=== PATIENT | female | born 1990 | race Caucasian/White ===

== ENCOUNTER 2020-10-25 15:27 | Emergency (ER) | payer OTHER ==
[~2020-10-25] VITALS: Ht 152.4 cm; Wt 68.0 kg
--- NOTE | 2020-10-25 15:46 | NUR ---
DR GAITAN AT BEDSIDE
[2020-10-25] MEDS ORDERED: MORPHINE SULFATE INJ 4 MG/ML DISP.SYRIN ONE (16:05)
[2020-10-25] MEDS ORDERED: ONDANSETRON 4 MG TAB.RAPDIS ONE (16:05)
[2020-10-25] MEDS: MORPHINE SULFATE INJ 2 MG/ML DISP.SYRIN IM ONE (16:09)
[2020-10-25] MEDS: ONDANSETRON 4 MG TAB.RAPDIS SL ONE (16:10)
--- NOTE | 2020-10-25 16:10 | NUR ---
PT MEDICATED ORDERED
--- NOTE | 2020-10-25 16:11 | NUR ---
XRAY AT BEDSIDE
--- NOTE | 2020-10-25 16:22 | NUR ---
DR GAITAN AT BEDSIDE
--- NOTE | 2020-10-25 16:31 | NUR ---
THANIA MCFADDEN AT BEDSIDE FOR PLACING KNEE IMMOBILIZER
[2020-10-25 17:34] VITALS: BP 97/59
--- NOTE | 2020-10-25 17:34 | NUR ---
Patient discharged to home in stable condition. Written and verbal after care instructions given. Patient verbalizes understanding of instruction. Assisted via wheelchair to the waiting room
== END 2020-10-25 17:42 | disposition home or self-care (01) ==
LOC: ER 15:39
DX: M22.8X1 Other disorders of patella, right knee (principal)
CPT/HCPCS: 29505; 73560; 96372; 99283; J2270; Q0162